=== PATIENT | male | born 1975 | race Caucasian/White ===

== ENCOUNTER 2020-06-17 16:51 | Emergency (ER) | payer OTHER ==
[~2020-06-17] VITALS: Ht 185.4 cm; Wt 122.7 kg
[2020-06-17 16:57] VITALS: BP 173/94
[2020-06-17] MEDS ORDERED: CYCLOBENZAPRINE 10 MG TABLET. PO ONE (18:15)
[2020-06-17] MEDS ORDERED: KETOROLAC 15 MG/ML VIAL. IVP ONE (18:15)
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
--- NOTE | 2020-06-17 18:54 | RAD ---
3 views thoracic spine and 3 views lumbar spine dated 06/17/2020. No comparison available. CLINICAL INDICATION: Pain. FINDINGS: 3 views thoracic spine show normal sagittal alignment. Vertebral body heights are maintained. No para spinous soft tissue abnormality. Minimal endplate hypertrophic changes. 3 views of lumbar spine show normal sagittal alignment. Vertebral body heights are maintained. Mild e ndplate hypertrophic changes. Mild to moderate arthrosis lower lumbar apophyseal joints. IMPRESSION: 1. No acute radiographic abnormality. 2. Mild multilevel spondylosis. Electronically signed by: Jame Mccloud MD (06/17/2020 6:51 PM) [id number]
[2020-06-17] MEDS ORDERED: CYCL-331 PO (19:22)
== END 2020-06-17 19:25 | disposition home or self-care (01) ==
LOC: ER 16:51
DX: M54.5 Low back pain (principal); I10 Essential (primary) hypertension; M47.814 Spondylosis without myelopathy or radiculopathy, thoracic region
CPT/HCPCS: 72072; 72100; 96374; 99284; J1885